=== PATIENT | male | born 1940 | race Caucasian/White ===

== ENCOUNTER 2018-03-14 15:13 | Inpatient (IN) | payer OTHER ==
[~2018-03-14] VITALS: Ht 172.7 cm; Wt 84.0 kg
[2018-03-14 15:15] VITALS: Ht 172.7 cm; Wt 84.0 kg
[2018-03-14 16:22] LABS: BASOPHIL % 0.9 % (0-2); PLATELET COUNT 322 x10^3mcL (130-400); RED CELL DISTRIBUTION WIDTH 16.9 % (11.5-14.5)
[2018-03-14] MEDS ORDERED: FENOFIBRATE145 M1 PO (16:55)
[2018-03-14] MEDS ORDERED: FINASTERIDE5 M1 PO (16:56)
[2018-03-14] MEDS ORDERED: NIFEDIPINE60 MG PO (16:56)
[2018-03-14] MEDS ORDERED: TAMSULOSIN HYD0.4 M1 PO (16:57)
[2018-03-14] MEDS ORDERED: FUROSEMIDE40 MG PO ×2 (16:57)
[2018-03-14] MEDS ORDERED: PRAVASTATIN SOD80 M1 PO (16:57)
[2018-03-14 16:59] LABS: CALCIUM 9.1 mg/dL (8.5-10.1); CARBON DIOXIDE 21.4 mmol/L (21-32); CHLORIDE SERUM 100 mmol/L (98-107); CREATININE SERUM 2.5 mg/dL (0.7-1.3); GLUCOSE SERUM 161 mg/dL (74-106); POTASSIUM SERUM 3.5 mmol/L (3.5-5.1); SODIUM SERUM 135 mmol/L (136-145)
[2018-03-14] MEDS ORDERED: ASPIR LOW81 MG PO (16:59)
[2018-03-14 17:06] LABS: ALBUMIN 3.7 g/dL (3.4-5.0); ALKALINE PHOSPHATASE 67 U/L (46-116); ALT/SGPT 21 U/L (16-63); AST/SGOT 16 U/L (15-37); BILIRUBIN TOTAL 0.5 mg/dL (0.20-1.00); HDL CHOLESTEROL 41 mg/dL (40-60); TOTAL PROTEIN, SERUM 8.1 g/dL (6.4-8.2)
[2018-03-14 17:09] LABS: CHOLESTEROL 213 mg/dL (<200)
[2018-03-14 19:14] VITALS: BP 181/72
[2018-03-14 20:59] VITALS: BP 185/79
[2018-03-14 21:30] VITALS: BP 168/69
[2018-03-14 22:37] VITALS: BP 168/69
[2018-03-15] VITALS (8 sets, daily range): BP systolic 121–191; BP diastolic 62–80
[2018-03-15 17:40] LABS: BASOPHIL % 1.2 % (0-2); PLATELET COUNT 281 x10^3mcL (130-400)
[2018-03-15 17:42] LABS: RED CELL DISTRIBUTION WIDTH 16.9 % (11.5-14.5)
[2018-03-15 17:48] LABS: CALCIUM 8.4 mg/dL (8.5-10.1); CARBON DIOXIDE 24.9 mmol/L (21-32); CHLORIDE SERUM 102 mmol/L (98-107); CREATININE SERUM 2.5 mg/dL (0.7-1.3); GLUCOSE SERUM 122 mg/dL (74-106); POTASSIUM SERUM 3.4 mmol/L (3.5-5.1); SODIUM SERUM 137 mmol/L (136-145)
[2018-03-16 05:19] VITALS: BP 120/57
[2018-03-16 06:19] LABS: BASOPHIL % 0.9 % (0-2); PLATELET COUNT 258 x10^3mcL (130-400)
[2018-03-16 06:41] LABS: CALCIUM 8.4 mg/dL (8.5-10.1); CARBON DIOXIDE 22.9 mmol/L (21-32); CHLORIDE SERUM 102 mmol/L (98-107); CREATININE SERUM 2.3 mg/dL (0.7-1.3); GLUCOSE SERUM 130 mg/dL (74-106); POTASSIUM SERUM 3.2 mmol/L (3.5-5.1); SODIUM SERUM 137 mmol/L (136-145)
[2018-03-16 06:58] LABS: RED CELL DISTRIBUTION WIDTH 16.5 % (11.5-14.5)
[2018-03-16 08:33] VITALS: BP 173/74
[2018-03-16 11:37] VITALS: BP 179/65
[2018-03-16] MEDS ORDERED: PROVENTIL0.09 MG/A1 INH (17:25)
[2018-03-16 17:33] VITALS: BP 137/80
[2018-03-16 17:54] VITALS: BP 137/80
== END 2018-03-16 19:40 | disposition home health service (06) | DRG 291 ==
LOC: ED 15:13 → DU 17:53
PROVIDERS: Emergency Medicine; Internal Medicine
DX: I13.0 Hypertensive heart and chronic kidney disease with heart failure and stage 1 through stage 4 chronic kidney disease, or unspecified chronic kidney disease (principal); I50.43 Acute on chronic combined systolic (congestive) and diastolic (congestive) heart failure; J44.1 Chronic obstructive pulmonary disease with (acute) exacerbation; N18.4 Chronic kidney disease, stage 4 (severe); E11.22 Type 2 diabetes mellitus with diabetic chronic kidney disease; I27.20 Pulmonary hypertension, unspecified; Z87.891 Personal history of nicotine dependence
CPT/HCPCS: 82962; 83880; 97116-GP; A9500; J0360; J1644; J1940; J2785; J3480; J7620; Q0092